=== PATIENT | female | born 1995 ===

== ENCOUNTER 2017-03-04 09:25 | Emergency (ER) | payer MEDICAID, OTHER ==
[2017-03-04 09:43] VITALS: BP 124/76; PULSE 74; RESP 16; TEMP 98.8; O2SAT 99
--- NOTE | 2017-03-04 09:53 | ED PDOC ---
HPI: General Adult Time Seen by Provider: 03/04/17 09:38 Chief Complaint (Nursing): Abnormal Skin Integrity Chief Complaint (Provider): Lip pain and swelling History Per: Patient History/Exam Limitations: no limitations Onset/Duration Of Symptoms: Days (x 2 days) Current Symptoms Are (Timing): Still Present Additional Complaint(s): Erica Fisher is a 21 y/o female with no previous medical history who presents to the emergency department complaining of right lower lip pain and swelling near a piercing, ongoing for the past 2 days. Denies fever and drainage. PMD: Unknown Past Medical History Reviewed: Historical Data, Nursing Documentation, Vital Signs Vital Signs: Last Vital Signs Temp 98.8 F 03/04/17 09:42 Pulse 74 03/04/17 09:42 Resp 16 03/04/17 09:42 BP 124/76 03/04/17 09:42 Pulse Ox 99 03/04/17 10:00 - Medical History PMH: Anxiety, Depression - Surgical History Surgical History: No Surg Hx - Family History Family History: States: Unknown Family Hx - Home Medications Home Medications: Ambulatory Orders Medication Instructions Recorded Clindamycin [Cleocin] 300 mg PO TID #30 cap 03/04/17 - Allergies Allergies/Adverse Reactions: Allergies Allergy/AdvReac Type Severity Reaction Status Date / Time No Known Allergies Allergy Verified 11/17/14 15:39 Review of Systems ROS Statement: Except As Marked, All Systems Reviewed And Found Negative Constitutional: Negative for: Fever ENT: Positive for: Mouth Swelling (Right lower lip pain and swelling near piercing). Negative for: Other (Drainage) Physical Exam - Reviewed Nursing Documentation Reviewed: Yes Vital Signs Reviewed: Yes - Physical Exam Appears: Positive for: Well, Non-toxic, No Acute Distress Head Exam: Positive for: ATRAUMATIC, NORMAL INSPECTION, NORMOCEPHALIC Skin: Positive for: Normal Color, Warm, Dry Eye Exam: Positive for: EOMI, Normal appearance, PERRL ENT: Positive for: Other (Lower lip with mild edema but no erythema, palpable fluctuance, or drainage ) Neck: Positive for: Normal, Painless ROM, Supple Cardiovascular/Chest: Positive for: Regular Rate, Rhythm Respiratory: Positive for: CNT, Normal Breath Sounds Back: Positive for: Normal Inspection. Negative for: Vertebral Tenderness Extremity: Positive for: Normal ROM. Negative for: Pedal Edema, Deformity Neurologic/Psych: Positive for: Alert, Oriented - ECG O2 Sat by Pulse Oximetry: 99 (RA) Pulse Ox Interpretation: Normal Medical Decision Making Medical Decision Making: Time: 09:45 Plan: --Patient advised to remove piercing, rinse mouth with Listerine, and clean externally with soap and water --Will place on antibiotics Scribe Attestation: Documented by Angelica Galo, acting as a scribe for Toño Hernandez MD Provider Scribe Attestation: All medical record entries made by the Scribe were at my direction and personally dictated by me. I have reviewed the chart and agree that the record accurately reflects my personal performance of the history, physical exam, medical decision making, and the department course for this patient. I have also personally directed, reviewed, and agree with the discharge instructions and disposition. Disposition - Clinical Impression Clinical Impression: Cellulitis - Disposition Referrals: [facility] [Outside] Disposition Time: 10:00 Condition: FAIR Prescriptions: Clindamycin [Cleocin] 300 mg PO TID #30 cap Instructions: Cellulitis (ED)
== END 2017-03-04 10:11 | disposition home or self-care (01) ==
LOC: H.ER 09:25
DX: L03.211 Cellulitis of face (principal); F41.9 Anxiety disorder, unspecified

== ENCOUNTER 2017-10-07 23:26 | Emergency (ER) | payer OTHER ==
[2017-10-07 23:37] VITALS: BP 112/62; PULSE 78; RESP 18; TEMP 97.8; O2SAT 98
[2017-10-08] MEDS ORDERED: Naproxen 500 MG TAB PO STA (00:53)
[2017-10-08] MEDS ORDERED: Naproxen 500 MG TAB PO ONE (01:22)
--- NOTE | 2017-10-08 02:22 | ED PDOC ---
Lower Extremity Pain/Injury Time Seen by Provider: 10/08/17 00:18 Chief Complaint (Nursing): Lower Extremity Problem/Injury Chief Complaint (Provider): Lower Extremity Injury History Per: Patient History/Exam Limitations: no limitations Onset/Duration Of Symptoms: Hrs (x10 hours) Current Symptoms Are (Timing): Still Present Severity: Mild Pain Scale Rating Of: 6 Additional Complaint(s): 21 year old female presents to ED with complaints of right knee pain x10 hours. Reports that she was going up a ladder when she felt pain to the medial aspect of her right knee. Patient denies any falls, trauma, or history of knee injury. Notes pain has been intermittent since onset and worsens with movement and walking. 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 LMP: 09/10/17 PCP [facility] - Risk Factors DVT Risk Factors: Pos: None Past Medical History Reviewed: Historical Data, Nursing Documentation, Vital Signs Vital Signs: Last Vital Signs Temp 97.8 F 10/07/17 23:34 Pulse 78 10/07/17 23:34 Resp 18 10/07/17 23:34 BP 112/62 10/07/17 23:34 Pulse Ox 98 10/07/17 23:34 - Medical History PMH: Anxiety, Depression Denies: Chronic Kidney Disease Other PMH: Pituitary Gland Tumor - Surgical History Surgical History: No Surg Hx - Family History Family History: States: Unknown Family Hx - Home Medications Home Medications: Ambulatory Orders Medication Instructions Recorded Clindamycin [Cleocin] 300 mg PO TID #30 cap 03/04/17 Naproxen 500 mg PO BID PRN #20 tab 10/08/17 - Allergies Allergies/Adverse Reactions: Allergies Allergy/AdvReac Type Severity Reaction Status Date / Time No Known Allergies Allergy Verified 11/17/14 15:39 Wells Criteria for PE - Wells Criteria for Pulmonary Embolism Clinical Signs and Symptoms of DVT: No P.E is #1 Diagnosis, or Equally Likely: No Heart Rate >100: No Immobilization at least 3 days;Surgery previous 4 weeks: No Previous, objectively diagnosed PE or DVT: No Hemoptysis: No Malignancy w/treatment within 6 months, or palliative: No Total Score: 0 Review of Systems ROS Statement: Except As Marked, All Systems Reviewed And Found Negative Musculoskeletal: Positive for: Leg Pain ((+) right knee pain) Physical Exam - Reviewed Nursing Documentation Reviewed: Yes Vital Signs Reviewed: Yes - Physical Exam Appears: Positive for: Well, Non-toxic, No Acute Distress Head Exam: Positive for: NORMOCEPHALIC Skin: Positive for: Normal Color, Warm, Dry Neck: Positive for: Supple Cardiovascular/Chest: Positive for: Regular Rate, Rhythm. Negative for: Murmur Respiratory: Positive for: Normal Breath Sounds. Negative for: Decreased Breath Sounds, Accessory Muscle Use, Respiratory Distress Pulses-Dorsalis Pedis (R): 2+ Pulses-Post. Tibialis (R): 2+ Gastrointestinal/Abdominal: Positive for: Soft. Negative for: Tenderness, Mass , Distended, Guarding, Rebound Extremity: Positive for: Normal ROM (full ROM of right knee both actively and passively with pain on flexion), Tenderness (mild tenderness to medial aspect of right knee). Negative for: Calf Tenderness, Deformity, Other ((-) effusion or overlying skin changes to right knee) Neurologic/Psych: Positive for: Alert, Oriented, Gait (steady). Negative for: Motor/Sensory Deficits - ECG O2 Sat by Pulse Oximetry: 98 (RA) Pulse Ox Interpretation: Normal Medical Decision Making Medical Decision Makin Initial impression: acute knee pain, sprain Initial plan: * Naproxen 500mg PO * TEETEE wrap * Re-eval 0053 Upon re-evaluation patient notes improvement in symptoms. Affected limb remains NV intact, patient ambulating in ED without difficulty. Patient is stable for discharge home. Dx: acute knee pain, likely sprained MCL Patient will follow up with PMD/ortho in 1-2 days and was prescribed Naproxen for pain as needed. Advised to take medication as prescribed. Return to the emergency room at any time for any new or worsening symptoms. Patient states she fully agrees with and understands discharge instructions. States that she agrees with the plan and disposition. Verbalized and repeated discharge instructions and plan. I have given the patient opportunity to ask any additional questions. RILEY encouraged. Scribe Attestation: Documented by Leslie Delgado acting as a scribe for Ingrid Tran PA-C. Scribe Attestation: All medical record entries made by the Scribe were at my direction and personally dictated by me. I have reviewed the chart and agree that the record accurately reflects my personal performance of the history, physical exam, medical decision making, and the department course for this patient. I have also personally directed, reviewed, and agree with the discharge instructions and disposition. Disposition - Clinical Impression Clinical Impression: Acute knee pain, Knee MCL sprain - Disposition Referrals: Oksana Jimenez MD [Primary Care Provider] - Disposition: Routine/Home Disposition Time: 00:53 Condition: STABLE Additional Instructions: Follow up with Dinorah Rincon (ortho) for further evaluation if symptoms persist. [address] [place] [address] Prescriptions: Naproxen 500 mg PO BID PRN #20 tab PRN Reason: Pain, Mild (1-3) Instructions: Knee Sprain (DC), Ligament Injuries in the Knee, Knee Pain (DC) Forms: [facility] (Bulgarian) Print Language: FRENCH
== END 2017-10-08 03:15 | disposition home or self-care (01) ==
LOC: H.ER 23:26
DX: S83.91XA Sprain of unspecified site of right knee, initial encounter (principal); X50.9XXA Other and unspecified overexertion or strenuous movements or postures, initial encounter; Y92.89 Other specified places as the place of occurrence of the external cause; F32.9 Major depressive disorder, single episode, unspecified; F41.9 Anxiety disorder, unspecified